=== PATIENT | female | born 1965 | race Caucasian/White ===

== ENCOUNTER 2024-01-14 14:33 | Outpatient (CLI) | payer MEDICARE, MEDICAID | END 2024-01-14 23:59 | disposition home or self-care (01) | LOC: RAD 14:33 | PROVIDERS: ATTEND General Practice | DX: R13.14 Dysphagia, pharyngoesophageal phase (principal); K21.9 Gastro-esophageal reflux disease without esophagitis | CPT/HCPCS: 74230 ==